=== PATIENT | female | born 1975 | race African-American/Black ===

== ENCOUNTER 2021-03-13 17:40 | Emergency (ER) | payer OTHER, SELFPAY ==
[2021-03-13 17:53] VITALS: BP 153/86; PULSE 73; RESP 17; TEMP 36.3; O2SAT 100
--- NOTE | 2021-03-13 19:14 | PC.NURSE ---
Patient report received from ML Schafer.Assumed care of patient at this time.
[2021-03-13 19:33] LABS: Add Urine Microscopic? YES; Appearance Urine Cloudy (Clear); Bacteria Urine Trace /hpf; Bilirubin Urine Negative (Negative); Blood Urine 1+ (Negative); Color Urine Yellow (Yellow); Glucose Urine UA 3+ mg/dL (Negative); Ketones Urine Negative (Negative); Leukocyte Esterase Ur 3+ LEU/UL (Negative); Nitrate Urine Negative (Negative); Protein Urine Negative (Negative); Specific Grav Ur 1.021 (1.001-1.035); Squamous Epithelial Cell Urine Many /hpf (Few); Urobilinogen Urine Negative mg/dL (<2.0)
--- NOTE | 2021-03-13 19:53 | ED.FEMALEGU ---
HPI - Female Genitourinary General Chief complaint: DIAM[employer] Stated complaint: Vag discharge Time Seen by Provider: 03/13/21 19:07 Source: patient Mode of arrival: ambulatory Limitations: no limitations History of Present Illness HPI Narrative: This is a 45-year-old female that presents the emergency department for abnormal vaginal discharge x3 days. Associated with vaginal irritation. Does report concern for STDs. Denies fever, pelvic pain, vomiting, dysuria, or hematuria. Related Data Home Medications Medication Instructions Recorded Confirmed insulin glargine [Lantus U-100 15 unit SUBCUT HS 03/13/21 03/13/21 Insulin] Allergies Allergy/AdvReac Type Severity Reaction Status Date / Time No Known Allergies Allergy Verified 03/13/21 18:46 Review of Systems Review of Systems: Narrative: CONSTITUTIONAL: Denies fever GASTROINTESTINAL: Denies abdominal pain, nausea, vomiting GENITOURINARY: Denies dysuria or hematuria. SKIN: Denies rash All systems reviewed & are unremarkable except as noted in HPI and below PMFSH Past Medical History Medical History (Updated 03/13/21 @ 21:06 by Norma Barahona PA-C) History of diabetes mellitus Social History Social History (Updated 03/13/21 @ 19:55 by Norma Barahona PA-C) Substance use: never Exam Narrative: Exam Narrative: GENERAL: Well-appearing, well-nourished, and in no acute distress. HEAD: Normocephalic, atraumatic. EYES: EOMI. CHEST: Clear to auscultation. No respiratory distress. No wheezes rales or rhonchi HEART: Regular rate and rhythm. No murmur heard. Normal peripheral pulses. ABDOMEN: Soft, nontender, nondistended, normal active bowel sounds. EXTREMITIES: Normal range of motion. No edema. SKIN: Warm, dry, no rash. NEURO: No focal deficits. Alert and oriented x3. PSYCH: Normal mood and affect PELVIC: Normal external genitalia. Normal appearing cervix. Small amount of pink vaginal discharge Course Vital Signs Vital signs: Vital Signs Temperature 97.3 F L 03/13/21 17:53 Pulse Rate 73 03/13/21 17:53 Respiratory Rate 17 03/13/21 17:53 Blood Pressure 153/86 H 03/13/21 17:53 Pulse Oximetry 100 03/13/21 17:53 Temperature 97.3 F L 03/13/21 17:53 Pulse Rate 73 03/13/21 17:53 Respiratory Rate 17 03/13/21 17:53 Blood Pressure 153/86 H 03/13/21 17:53 Pulse Oximetry 100 03/13/21 17:53 MDM - Female Genitourinary MDM Narrative Medical decision making narrative: Patient presents the emergency department for abnormal vaginal discharge and irritation. She is afebrile and nontoxic appearing. Denies any pelvic pain. UA with 10-50 white blood cells and trace bacteria, many squamous epithelial cells. Patient denies any urinary discomfort. Bedside test is negative. Trichomonas is negative. Chlamydia, gonorrhea and genital culture were sent. Patient would like presumptively treated for chlamydia and gonorrhea. Will be started on oral antibiotics. Was also given dose of fluconazole in the ED. Patient is stable and non-smoker for further outpatient evaluation. Instructed to follow-up with gynecology. She was given warnings to return to the ER Lab Data Attestation: I reviewed the patient's lab results. Labs: Lab Results 03/13/21 03/13/21 03/13/21 Range/Units 19:20 19:48 19:48 Urine Color Yellow (Yellow) Urine Appearance Cloudy H (Clear) Urine pH 6.0 (5.0-9.0) Ur Specific [place] 1.021 (1.001-1.035) Urine Protein Negative (Negative) mg/dL Urine Glucose (UA) 3+ H (Negative) mg/dL Urine Ketones Negative (Negative) mg/dL Ur Blood (Man) 1+ H (Negative) Urine Nitrate Negative (Negative) Urine Bilirubin Negative (Negative) Urine Urobilinogen Negative (<2.0) mg/dL Leukocyte Esterase Rfl 3+ H (Negative) OCTAVIANO/UL Urine RBC 6-10 H (0-2) /hpf Urine WBC 10-15 H /hpf Ur Squamous Epith Cells Many H (Few) /hpf Urine Bacteria Trace /hpf C.trach
[2021-03-13] MEDS: cefTRIAXone 1 GM VIAL 0.5 GM IM (20:42)
[2021-03-13] MEDS: FLUCONAZOLE 150 MG TABLET PO (21:26)
== END 2021-03-13 21:30 | disposition home or self-care (01) ==
PROVIDERS: Physician Assistant; Emergency Provider Emergency Medicine; PCP Internal Medicine
DX: Z20.2 Contact with and (suspected) exposure to infections with a predominantly sexual mode of transmission (principal)
CPT/HCPCS: 81001; 81025; 87070; 87077; 87086; 87088; 87491; 87591; 87808; 96372; 99283; A9270; J0696